=== PATIENT | male | born 1990 | race African-American/Black ===

== ENCOUNTER 2020-06-29 11:18 | Emergency (ER) | payer SELFPAY ==
--- NOTE | ~2020-06-29 | CT_ITS ---
EXAMINATION: CT facial bones wo con DATE: 06/29/2020 12:07 INDICATION: Head injury. TECHNIQUE: Computed tomography (CT) of the facial bones and maxillofacial region was performed withou t intravenous contrast. Automated exposure control and iterative reconstruction technique were employ ed. The dose-length product was 270.87 mGy-cm. COMPARISON: Head CT 03/12/2014 FINDINGS: The orbits are normal. There are fractures of the nasal bones and left nasal process of max illa. There is left field deviation of the nasal septum. There is mild mucosal thickening in the paran quinten sinuses. There is mild cervical spondylosis. IMPRESSION: 1. Fractures of the nasal bones and left nasal process of maxilla. Reviewed, dictated and finalized at location A. [employer]
--- NOTE | ~2020-06-29 | XR_ITS ---
EXAMINATION: XR knee RT min 4V EXAM DATE: 06/29/2020 12:17 INDICATION: Initial encounter following injury, with pain of the right knee. TECHNIQUE: Right knee frontal, crosstable lateral, orthogonal oblique projections for interpretation . There is no prior study for comparison. FINDINGS: No evidence osteochondral defect or joint body in the right knee joint. No joint effusio n. There are no acute fractures or dislocations identified. There is no subcutaneous gas. The soft tissue is unremarkable. There are no radiopaque foreign bodies. IMPRESSION: 1. Right knee exam without acute osseous findings. Reviewed, dictated and finalized at location A. [employer] OPER[employer]
--- NOTE | ~2020-06-29 | CT_ITS ---
EXAMINATION: CT brain wo con DATE: 06/29/2020 12:07 INDICATION: Head injury. TECHNIQUE: Computed tomography (CT) of the head was performed without intravenous contrast. The mA wa s adjusted according to patient size. Iterative reconstruction technique was employed. The dose-lengt h product was 529.67 mGy-cm. COMPARISON: Head CT 03/12/2014 FINDINGS: There is no intracranial hemorrhage, acute infarction, or abnormal intracranial mass lesion . The ventricles are normal in size. There are fractures of the nasal bones and left nasal process of maxilla. There is mild mucosal thickening in the ethmoid sinuses. The mastoid air cells are normal. The orbits are normal. IMPRESSION: 1. Normal brain. 2. Fractures of the nasal bones and left nasal process of maxilla. Reviewed, dictated and finalized at location A. COOK
[2020-06-29 11:25] VITALS: BP 148/98; PULSE 72; RESP 20; TEMP 36.6; O2SAT 100
[2020-06-29] MEDS: KETOROLAC (*BKC) 60 MG/2 ML VIAL IM (12:07)
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
== END 2020-06-29 13:41 | disposition home or self-care (01) ==
PROVIDERS: Emergency Provider Emergency Medicine; Family Provider Pediatrics; PCP Internal Medicine
DX: S02.2XXA Fracture of nasal bones, initial encounter for closed fracture (principal); F17.200 Nicotine dependence, unspecified, uncomplicated; Y04.0XXA Assault by unarmed brawl or fight, initial encounter
CPT/HCPCS: 70450; 70486; 73564; 96372; 99284; J1885

== ENCOUNTER 2021-02-16 15:14 | Emergency (ER) | payer BC, SELFPAY ==
--- NOTE | 2021-02-16 15:17 | ED.URI ---
HPI - URI/Sore Throat General Chief Complaint: Upper Respiratory Infection Stated Complaint: sore throat Source: patient and RN notes reviewed Mode of arrival: ambulatory Limitations: no limitations History of Present Illness HPI Narrative: Patient seen at 1545 30-year-old male presents with concern for 3-day history of chills, fatigue, decreased appetite, sore throat, postnasal drip, occasional cough, nasal congestion, rhinorrhea. Reports he has been taking Sudafed, NyQuil with some relief. Reports throat is worse in the morning and improves slightly throughout the day. Reports history of seasonal allergies. Reports he has been fully vaccinated for Covid. Denies shortness of breath, fever MD elicited complaint: sore throat Related Data Allergies Allergy/AdvReac Type Severity Reaction Status Date / Time iodine Allergy Unknown Hives / Verified 02/16/21 15:49 Red Face Review of Systems Review of Systems: CONSTITUTIONAL: Denies malaise, sweats, or fever. Reports chills EYES: Denies visual changes, redness, or discharge. ENT: Reports rhinorrhea, congestion, sore throat. Denies sinus pain, otalgia CARDIOVASCULAR: Denies chest pain, palpitations, or edema. RESPIRATORY: Reports cough. Denies dyspnea. GASTROINTESTINAL: Denies abdominal pain, nausea, vomiting, diarrhea. Reports decreased appetite SKIN: Denies rash or itching. MUSCULOSKELETAL: Reports myalgia. NEUROLOGIC: Denies headache. All systems reviewed & are unremarkable except as noted in HPI and below PMFSH Family History Family History (Updated 12/29/15 @ 23:21 by DOCTOR UNKNOWN) Mother Patient's mother is in good health Father Patient's father is in good health Social History Social History (Updated 06/29/20 @ 12:16 by Dee Bourne PA-C) Smoking status: Current every day smoker Substance use: current Substance use type: marijuana Comments At time of signature, agree with nursing past medical, surgical, social and family history. There is no relevant family history pertinent to the presenting complaint Exam Narrative: GENERAL: Well-appearing, well-nourished, and in no acute distress. HEAD: Normocephalic EYES: PERRLA, conjunctivae clear ENT: Nares clear, turbinates edematous and erythematous, clear discharge. Mucous membranes moist. TM pearly reid with dull light reflex bilaterally; no tragal tenderness. Oropharynx erythematous without lesions. Tonsils enlarged and without exudate, no drooling, no hoarseness, no trismus, uvula midline. NECK: Supple. No lymphadenopathy CHEST: Clear to auscultation, breath sounds equal. No wheezing, rhonchi, rales, or stridor. No respiratory distress, speaks in full sentences. HEART: Regular rate and rhythm. No murmur heard. SKIN: Warm, dry, no rash. NEURO: Alert and oriented x3. PSYCH: Normal mood and affect Course Course Emergency Course: Patient is aware of diagnosis, understands and agrees to treatment plan. Anticipatory guidance given. Patient agrees to follow-up as directed and is aware of reasons to seek care at the emergency department. Portions of this record may have been created with voice recognition software Vital Signs Vital signs: Reviewed. MDM - URI/Sore Throat MDM Narrative Medical decision making narrative: Differential diagnosis considered: Vidal virus, strep pharyngitis, allergic rhinitis, upper respiratory tract infection, sinusitis, rhinosinusitis, nasopharyngitis. viral pharyngitis, otitis media, otitis externa, pneumonia, bronchitis, viral cough syndrome, viral syndrome, and influenza. Exam findings show no acute concerns or changes; patient is non-toxic appearing and is in no distress. Patient is appropriate for outpatient treatment and follow-up. Lab Data Attestation: I reviewed the patient's lab results. Lab results narrative: Rapid Covid negative, pending PCR confirmation Critical Care Time Critical Care Time Critical Care Time: No Discharge Plan Discharge Clinical Impres
[2021-02-16 15:24] VITALS: BP 134/79; PULSE 83; RESP 18; TEMP 37.2; O2SAT 100
[2021-02-17 18:08] LABS: SARS-CoV-2 RNA PCR Negative
== END 2021-02-16 16:10 | disposition home or self-care (01) ==
LOC: EXPTROY 15:18
PROVIDERS: Emergency Provider Nurse Practitioner
DX: J06.9 Acute upper respiratory infection, unspecified (principal); F12.90 Cannabis use, unspecified, uncomplicated; Z20.822 Contact with and (suspected) exposure to COVID-19
CPT/HCPCS: 87081; 87426; 87880; 99213; C9803; G0463; U0003; U0005